=== PATIENT | male | born 1995 | race African-American/Black ===

== ENCOUNTER 2023-03-14 19:19 | Emergency (ER) | payer BC, SELFPAY ==
[2023-03-14 19:28] VITALS: BP 113/79; PULSE 91; RESP 16; TEMP 36.7; O2SAT 98; BMI 23.5
--- NOTE | 2023-03-14 19:37 | ED.NURSE ---
Patient reports thoughts of feeling down, depressed and hopeless. He reports suicidal thoughts but reports he is not currently suicidal. No plan. He states he does not like to talk about it. He would like home medications refilled to help improve his mood.
--- NOTE | 2023-03-14 20:00 | ED.PSYCH ---
HPI - Psych General Chief Complaint: Unspecified Complaint, Adult Stated Complaint: Would like a med refill Time Seen by Provider: 03/14/23 19:53 History of Present Illness HPI Narrative: Patient is a 27-year-old gentleman who presents stating that he has not taken his schizophrenia medicine for 1 month. He thinks these medications are Zyprexa and prazosin. Patient states his paranoia is increasing and he is having a difficult time sleeping. Patient has not been drinking alcohol or using illicit drugs. Patient is not had any suicidal ideation but does feel depressed. Patient is not hurt himself by cutting or any other means. Patient has been feeling poorly for the last several days and comes in today to simply to get his medications refilled. Patient has no other symptoms such as chest pain shortness a breath orthopnea PND rash abdominal pain and no obvious hallucinations. Related Data Home Medications Medication Instructions Recorded Confirmed No Known Home Medications 03/14/23 03/14/23 Allergies Allergy/AdvReac Type Severity Reaction Status Date / Time No Known Drug Allergies Allergy Verified 03/14/23 19:27 Review of Systems Status of ROS: Reports: 10 or more systems reviewed and unremarkable except as noted in History and below [facility] Medical History Schizophrenia ?F20.9 - Schizophrenia, unspecified (ICD-10) Social History Smoking Status: Current every day smoker What tobacco products do you use: cigarettes Smoking packs per day: 0.5 Smoking cigarettes per day: 10.0 Do you use any of these nicotine containing products: None Second hand tobacco smoke exposure: No How often do you have a drink containing alcohol: never How often do you have six or more drinks on one occasion: Never AUDIT-C Alcohol total score: 0 Non-prescribed substance use: marijuana (any form) service: No Exam Narrative: Exam Narrative: EXAM GENERAL: Patient appears comfortable and well. EYES: No scleral icterus. ENT: Tympanic membranes and oropharynx normal. THYROID: no thyroid nodules or thyromegaly. LYMPH: No supraclavicular or cervical lymphadenopathy. SKIN: Visible skin seen during exam normal or with benign process only. EXT: No dependent lower extremity pedal edema. HEART: Regular rate and rhythm with no murmurs, rubs, or gallops. LUNGS: Clear to auscultation bilaterally with no crackles or wheezes. ABD: Soft, non tender, non distended. PSYCH: Good eye contact, speech is not pressured. Const: Vital Signs, click to edit/add: Vital Signs - 24 hr 03/14/23 19:28 Temperature 98.1 F Pulse Rate [Pulse Oximeter] 91 Respiratory Rate 16 Blood Pressure [Le ft Upper Arm] 113/79 Pulse Oximetry 98 Oxygen Delivery Me thod Room Air Course Course Hospital Course: Standard psychiatric labs ordered. Deck assessment obtained. We will clarify his medications. Reevaluation(s) Reevaluation #1: Patient does not want to wait for evaluation or to visit with DEC. I do not believe he is a suicide or homicide risk. I would like to leave against medical advice. I did try to get him to stay and after to fill his medications through the clinic if he is to follow-up with me to try to give him some options. Patient leaves against medical advice although we did not guarantee his safety. Vital Signs Vital signs: Initial Vital Signs Temperature 98.1 F 03/14/23 19:28 Temperature Source Temporal Artery Scan 03/14/23 19:28 Pulse Rate 91 03/14/23 19:28 Pulse Rhythm Regular 03/14/23 19:28 Respiratory Rate 16 03/14/23 19:28 Blood Pressure 113/79 03/14/23 19:28 Blood Pressure Mean 90 03/14/23 19:28 Pulse Oximetry 98 03/14/23 19:28 Oxygen Delivery Method Room Air 03/14/23 19:28 Vital Signs Temperature 98.1 F 03/14/23 19:28 Pulse Rate 91 03/14/23 19:28 Respiratory Rate 16 03/14/23 19:28 Blood Pressure 113/79 03/14/23 19:28 Pulse Oximetry 98 03/14/23 19:28 Oxygen Delivery Method Room Air 03/14/23 19:28 Temperature 98.1 F 03/14/23 19:28 Pulse Rate 91 03/14/23 19:28 Respiratory Rate 16 03/14/23 19:28 Blood Pressure 113/79 03/14/23 19:28 Pulse Oximetry 98 03/14/23 19:28 Oxygen Delivery Method Room Air 03/14/23 19:28 MDM - Psych MDM Narrative Medical decision making narrative: Patient left AMA. Discharge Plan Discharge Clinical Impression: Schizophrenia Patient Disposition: Left Against Medical Advice Condition: Stable Instructions: Schizophrenia (ED) Activity Level: Other Discharge Diet: Other Prescriptions: No Action No Known Home Medications Stand Alone Forms: [facility] [employer] Info Instructions
[2023-03-14 20:19] LABS: Basophils Absolute Auto 0.04 K/uL (0.00-0.30); Basophils Percent Auto 0.6 % (0.0-3.0); Eosinophils Percent Auto 9.4 % (0.0-7.0); Hematocrit 44.9 % (37.0-53.0); Hemoglobin* 15.5 gm/dL (13.5-17.5); Immature Granulocytes Abs Auto 0.01 K/uL (0.00-0.30); Immature Granulocytes Pct Auto 0.1 %; Lymphocytes Absolute Auto 2.49 K/uL (0.90-2.90); Mean Corpuscular HGB Conc 35 gm/dL (32-36); Mean Corpuscular Hemoglobin 30 pg (26-34); Mean Corpuscular Volume 87 fL (80-100); Monocytes Percent Auto 6.1 % (0.0-11.0); Neutrophils Percent Auto 47.8 % (42.0-72.0); Platelet Count* 292 K/uL (140-440); RDW Coefficient of Variation % 11.8 % (11.5-15.5); Red Blood Count 5.14 m/uL (4.30-5.90); White Blood Count* 6.91 K/uL (4.50-11.00)
[2023-03-14 20:22] LABS: Slide Review Reflex No
[2023-03-14 20:31] LABS: Albumin* 4.8 g/dL (3.3-5.0)
[2023-03-14 20:32] LABS: Chloride* 101 mmol/L (96-114); Sodium* 137 mmol/L (135-149)
--- NOTE | 2023-03-14 20:32 | ED.NURSE ---
Went into room to assess patient and explain plan of care. Patient was not happy to wait for DEC assessment and said that he only came in to get medication. He stated he would just leave. MD was notified, no safety hold needed. Per MD, patient was given appointment card with instructions to make appointment for follow up care. This was given to patient. Care recommendations were discussed and patient signed out AMA.
[2023-03-14 20:34] LABS: Alkaline Phosphatase* 60 U/L (40-150); Aspartate Amino Transferase* 19 U/L (12-35); Bilirubin Total* 0.7 mg/dL (0.1-1.5); Blood Urea Nitrogen* 15 mg/dL (5-24); Carbon Dioxide* 27 mmol/L (20-32); Estimated Glomerular Filt Rate 104 ml/min; Total Protein* 7.9 g/dL (6.0-8.3)
[2023-03-14 20:35] LABS: Alanine Aminotransferase* 15 U/L (4-50); Calcium* 9.7 mg/dL (8.4-10.6); Glucose* 97 mg/dL (60-115); Potassium* 4.1 mmol/L (3.6-5.1)
[2023-03-14 20:36] LABS: Acetaminophen* < 10.0 ug/mL (10.0-30.0); Ethanol* < 0.01 % (0.01-0.03); Salicylate* < 1.0 mg/dL (1.0-10)
== END 2023-03-14 20:43 | disposition left against medical advice (07) ==
PROVIDERS: Emergency Provider Internal Medicine
DX: F20.9 Schizophrenia, unspecified (principal); Z53.29 Procedure and treatment not carried out because of patient's decision for other reasons
CPT/HCPCS: 36415; 80053; 80143; 80179; 80306; 81003; 82077; 85025; 99282; 99283